=== PATIENT | female | born 2000 | race Caucasian/White ===

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

== ENCOUNTER 2018-02-02 09:07 | Day surgery (SDC) | payer BC ==
--- NOTE | 2017-12-23 12:17 | HP ---
AMENDED REPORT NOW INCLUDES COSIGNER DESIGNATION - ESIGNED BEFORE ADJUSTMENT PREOPERATIVE HISTORY AND PHYSICAL: DATE OF ADMISSION: 01/12/18 DATE OF PREOPERATIVE HISTORY AND PHYSICAL EXAMINATION: 12/22/17. This patient is scheduled for same-day surgery admission by Dr. Gonzalez on Thursday01/12/18. ATTENDING SURGEON: Dr. Nathaniel Gonzalez * (dictated by Beth Camacho, KIT). CHIEF COMPLAINT: Gallstones. HISTORY OF PRESENT ILLNESS: The patient is a 17-year-old female, recently evaluated by Dr. Gonzalez for abdominal pain. She has had episodic postprandial epigastric pain that typically occurs 30 minutes after meals. Provoking foods include eating [employer] chicken Nuggets and Canadian fries. After 1 such meal, she had persistent pain and went to the emergency room on 12/08/17. She had associated nausea, but no vomiting. She did not have any fever, chills, or jaundice. She had an abdominal ultrasound, which demonstrated gallstones and no findings of acute cholecystitis; her electrolytes were within normal limits. All of her liver function tests were also within normal limits. She was subsequently referred for surgical consultation. Dr. Gonzalez examined the patient and discussed the findings with the patient and has recommended laparoscopic cholecystectomy. He described the nature of the surgical procedure , the rationale for the procedure, the relevant risks, benefits, and alternatives and that procedure will be done under general anesthesia. Today, I reviewed the expected postoperative care and recovery. The patient has had a chance to ask questions and stated that she understands the information and is satisfied with the answers given to her questions. She will sign surgical consent on the day of surgery. PAST MEDICAL HISTORY: Anxiety, depression, intussusception as an , chronic diarrhea. PAST SURGICAL HISTORY: Bilateral Achilles tendon repair in childhood. OB HISTORY: 0. She is on an oral contraceptive. Her menstrual periods are irregular. MEDICATIONS: Sprintec 28 one tablet by mouth every day. ALLERGIES: No known drug allergies. FAMILY HISTORY: No known anesthesia reactions, bleeding tendencies, or clotting disorders. SOCIAL HISTORY: She is single and is a nonsmoker. She is employed as a global account manager. She denies the use of alcohol or other substances. Her father will accompany her on the day of surgery. REVIEW OF SYSTEMS: Constitutional: No fevers, chills, excessive fatigue or weight loss. Endocrine: No diabetes or thyroid disease. Hematologic: No easy bruising or bleeding. No history of blood transfusions. Respiratory: No dyspnea on exertion. No chronic cough. Cardiovascular: No anginal chest pain or palpitations. Gastrointestinal: As described in history of present illness. She states that her stools are irregular, sometimes loose, sometimes constipated. She denies any light-colored stools or dark urine. Genitourinary : No dysuria. Musculoskeletal: No joint or back pain. Integumentary: No chronic rashes or skin changes. Neurologic: No headache or blurred vision. General: No previous anesthesia complications. No history of DVT or pulmonary embolism. PHYSICAL EXAMINATION GENERAL SURVEY: The patient is a 17-year-old female, well-developed, well- nourished, in no acute distress. VITAL SIGNS: Height 66 inches, weight 167 pounds, body mass index 27. Blood pressure 112/74, pulse 72 and regular, respiratory rate 18, temperature 97.4 tympanic. HEENT: Anicteric sclerae. NECK: Supple. No cervical lymphadenopathy. LUNGS: Breath sounds bilaterally clear and equal. HEART: Regular rate and rhythm. No murmurs or rubs appreciated. ABDOMEN: Active bowel sounds, soft, nondistended. Mild epigastric tenderness on palpation. Negative Avendaño's sign. No obvious ventral hernias or organomegaly. PELVIC: Exam up to date, not repeated. RECTAL: Exam up to date, not repeated. EXTREMITIES: Warm without edema or skin ulceration. NEUROLOGIC: Alert and oriented x3. Steady gait. SKIN: Warm, dry, anicteric. IMPRESSION: Calculus of gallbladder without cholecystitis, without obstruction. PLAN: Say-day surgery admission to Dr. Gonzalez's service on 01/12/18, for laparoscopic cholecystectomy. RUBIO CAMACHO, KIT [id number]/[facility] #: [id number] MTDD
--- NOTE | 2018-01-21 15:22 | HP ---
ADMISSION HISTORY AND PHYSICAL: DATE OF ADMISSION/SURGERY: 02/02/18 through same day surgery. ATTENDING SURGEON: Dr. Nathaniel Gonzalez* (BARB Cornell dictating). This is a history and physical update from prior history and physical by Beth Agee. CHIEF COMPLAINT: Gallstones. HISTORY OF PRESENT ILLNESS: This is a 17-year-old female, who was recently scheduled for laparoscopic cholecystectomy on 01/12/18. Her surgery was cancelled related to a urinary tract infection (she states that her symptoms were in the left flank area and that she was treated through [facility]. She completed her course of antibiotics and feels back to her usual baseline). She has had a couple of limited episodes of her typical postprandial epigastric pain similar to those episodes in the past and felt to be consistent with biliary colic. Of late, she denies any fevers or chills, nausea, vomiting, or dark urine. The remainder of her workup was as noted on her prior HPI. PAST MEDICAL HISTORY: Otherwise unchanged. MEDICATIONS: No change in medications. ALLERGIES: No change in allergies. FAMILY HISTORY: Negative other than as noted above. REVIEW OF SYSTEMS: Negative other than as noted above. PHYSICAL EXAMINATION GENERAL: Well-nourished female, in no acute distress. VITAL SIGNS: Height 6 feet 6 inches, weight 165 pounds. Temperature 98.8, blood pressure 120/78, pulse 74, respirations 16. HEENT: Anicteric. LUNGS: Clear to auscultation. HEART: Regular rate and rhythm. No murmur noted. ABDOMEN: Soft and without significant tenderness on palpation. Negative Avendaño 's sign. No palpable masses or organomegaly. SKIN: Warm and dry. No suspicious rashes or lesions noted. Remainder of her physical exam is unchanged from the prior history and physical. IMPRESSION: Symptomatic cholelithiasis. PLAN: Laparoscopic cholecystectomy. BARB CORNELL [id number]/[facility] #: [id number] MTDD
[~2018-02-02 09:07] MED LIST: Buffered Lidocaine 0.9% SYRIN* 5 ML/SYR SYRINGE INTRADERM ONE; Sodium Citrate/Citric Acid* 15 ML UDC PO ONE
[2018-02-02] MEDS ORDERED: Sodium Citrate/Citric Acid* 15 ML UDC ONE (09:19)
[2018-02-02] MEDS ORDERED: ceFAZolin 2 GM PREMIX in ORs 2 GM/50 ML BAG IVPB ONE (09:19)
[2018-02-02] MEDS ORDERED: Propofol* 10 MG/ML 20 ML BTL IV PUSH ONE (10:29)
[2018-02-02] MEDS ORDERED: Lidocaine 2% PF * 5 ML VIAL ONE (10:29)
[2018-02-02] MEDS ORDERED: Rocuronium* 10 MG/ML VIAL ONE (10:29)
[2018-02-02] MEDS ORDERED: fentaNYL* 50 MCG/ML 2 ML VIAL (100 MCG VIAL) ONE ×2 (10:32→12:16)
[2018-02-02] MEDS ORDERED: Midazolam* 1 MG/ML 2 ML VIAL (2 MG) ONE (10:32)
[2018-02-02] MEDS ORDERED: ROPIVACAINE 5 MG/ML 30 ML BTL (0.5%) ONE (10:53)
[2018-02-02] MEDS ORDERED: Dexamethasone IV* 4 MG/ML 1 ML (4 MG) ONE (11:09)
[2018-02-02] MEDS ORDERED: Neostigmine Methylsulfate* 1 MG/ML 10 ML VIAL (1 mg/ml) ONE (11:30)
[2018-02-02] MEDS ORDERED: Glycopyrrolate IV* 0.2 MG/ML 1 ML VIAL ONE (11:30)
[2018-02-02] MEDS ORDERED: Ketorolac INJ* 30 MG/ML 1 ML VIAL ONE (11:33)
[2018-02-02] MEDS ORDERED: Ondansetron INJ* 2 MG/ML VIAL IV PRN (11:42)
[2018-02-02] MEDS ORDERED: Naloxone* 0.4 MG/ML 1 ML VIAL IV PRN (11:42)
--- NOTE | 2018-02-02 12:13 | BRIEFOPN ---
Brief Operative Note - Surgery Procedures: Brief Operative Note Preoperative Dx: Symptomatic cholelithiasis. Postoperative Dx: Same. Procedure: Laparoscopic cholecystectomy. Anesthesia: GET. Surgeon: MD Lisa. Assist: BARB Cooley and RUDI Bernard. EBL: Less than 50. Fluids: 1000 LR. Specimen: Gallbladder. Findings: Dictated.
[2018-02-02] MEDS ORDERED: HYDROcodone/ACETAMIN 5-325 MG* 1 TAB PO PRN ×2 (12:17)
[2018-02-02] MEDS: fentaNYL* 50 MCG/ML 2 ML VIAL (100 MCG VIAL) IV PRN ×2 (12:18→12:20)
[2018-02-02] MEDS ORDERED: HYDROcodone/ACETAMIN 5-325 MG* 1 TAB ONE (12:50)
[2018-02-02 13:26] VITALS: BP 137/86
--- NOTE | 2018-02-03 22:07 | OP ---
DATE OF OPERATION: 02/02/18 - [facility] DATE OF : [birth year] SURGEON: Nathaniel Gonzalez MD CONSTRUCTION PERSON: BARB Cornell ANESTHESIOLOGIST: Mir Dela Cruz DO ANESTHESIA: General endotracheal. PRE-OP DIAGNOSIS: Symptomatic cholelithiasis. POST-OP DIAGNOSIS: Symptomatic cholelithiasis. OPERATIVE PROCEDURE: Laparoscopic cholecystectomy. ESTIMATED BLOOD LOSS: Less than 50 mL. IV FLUIDS: 1 L crystalloids. SPECIMEN: Gallbladder. DRAINS: None. COMPLICATIONS: None. COUNTS: Instrument, needle, and sponge counts were correct. DESCRIPTION OF PROCEDURE: The patient was brought to the operating room, placed on the table supine. Sequential compression devices were placed on both lower extremities. General anesthesia was administered. Intravenous antibiotics were administered. The patient was prepped and draped in usual sterile fashion. A time-out was performed. Local anesthetic was infiltrated into the skin and soft tissue prior to making each incision. Entry to the abdomen was through a transumbilical vertical incision accommodating a 12 mm trocar. Carbon dioxide was insufflated to a pressure of 15 mmHg. Under direct visualization, 5 mm trocars were placed, one in the subxiphoid position and two in the right upper quadrant. The gallbladder was identified. There were some chronic inflammatory changes noted, no acute changes. The fundus was grasped and retracted cephalad. The omental adhesions to the gallbladder were taken down with the use of combination of sharp and blunt dissection with cautery. The infundibulum was identified. The peritoneum and rest of the gallbladder in this area was incised both medially and laterally and blunt dissection was used to identify the cystic duct and then the cystic artery. Each was dissected out slowly and then each doubly clipped and divided. The gallbladder attachments to the liver were divided with cautery. Once the gallbladder was freed, it was placed in the endoscopic retrieval bag and retrieved through the umbilical site. Inspection of the area of dissection revealed the hemostasis to be excellent and clips were intact. The ports were then removed under direct visualization and carbon dioxide was released. The umbilicus was closed with 0 Vicryl suture in interrupted fashion. Skin incisions were closed with 4-0 Monocryl in subcuticular fashion. Steri-Strips were applied. The patient tolerated the procedure well, was extubated uneventfully and transferred to recovery room in a stable condition. [id number]/[facility] #: [id number] ARELY
== END 2018-02-02 13:37 | disposition home or self-care (01) ==
LOC: OR 09:07
PROVIDERS: ATTEND Surgery
DX: K80.10 Calculus of gallbladder with chronic cholecystitis without obstruction (principal); F41.8 Other specified anxiety disorders
CPT/HCPCS: 81025; 88304; A9270-GY; J0690; J1100; J1885; J2250; J2704; J2710; J2795; J3010